=== PATIENT | male | born 1955 | race American Indian/Alaskan Native ===

== ENCOUNTER 2017-09-15 11:41 | Inpatient (IN) | payer OTHER ==
[2017-09-15] MEDS ORDERED: ASPIRIN PO ONE (12:42)
--- NOTE | 2017-09-15 12:45 | Emergency Department Report ---
Chief Complaint: Chest Pain Stated Complaint: CHILLS/FEVER Time Seen by Provider: 09/15/17 12:38 - HPI History of Present Illness: Patient is a 61-year-old [place] male who states that for the past week he has been having exertional diaphoresis. Patient states that when he is at work and he exerts himself only a slight amount he breaks out into a sweat and has some very mild shortness of breath. Within approximately 15 minutes his symptoms do resolve. Patient states that he has had one episode of congestive heart failure in the past patient states that his arteries of his heart were evaluated and he states that "they were good" patient is having no additional symptoms at this time. Patient denies cough fevers chills nausea vomiting. - ROS Review of Systems: ROS is negative except for those elements stated in HPI - Exam Vital Signs: Vital Signs 09/15/17 11:47 Temperature 98 F Pulse Rate 54 L Respiratory 16 Rate Blood Pressure 131/77 O2 Sat by Pulse 99 Oximetry Physical Exam: Physical exam within normal limits heart lung exam were normal abdomen was normal MSE screening note: Focused history and physical exam performed. Due to findings the following was ordered: ED Medical Decision Making - Medical Decision Making Patient may possibly be having anginal equivalent. Patient removed to the main ED for further management. ED Disposition for MSE Condition: Stable
--- NOTE | 2017-09-15 13:24 | XRay Report ---
Chest 2 views: History: Chest pain. Findings: Normal cardiomediastinal silhouette. Trachea is midline. No consolidation, pneumothorax or pleural effusion. Impression: No acute cardiopulmonary findings.
[2017-09-15 13:26] LABS: Hemoglobin 14.1 gm/dl (11.8-15.2); Mean Corpuscular HGB Conc 31 % (32-34); Mean Corpuscular Hemoglobin 24 pg (28-32); Mean Corpuscular Volume 75 fl (84-94); Platelet Count 210 K/mm3 (140-440); Red Blood Count 6.01 M/mm3 (3.65-5.03); Red Cell Distribution Width 14.2 % (13.2-15.2); White Blood Count 3.7 K/mm3 (4.5-11.0)
[2017-09-15 13:40] LABS: INR 0.99 (0.87-1.13)
[2017-09-15 13:41] LABS: Partial Thromboplastin Time 36.9 Sec. (24.2-36.6)
--- NOTE | 2017-09-15 13:43 | Emergency Department Report ---
ED Chest Pain HPI - General Chief Complaint: Chest Pain Stated Complaint: CHILLS/FEVER Time Seen by Provider: 09/15/17 12:38 Source: patient Mode of arrival: Ambulatory Limitations: No Limitations - History of Present Illness Initial Comments: Patient is 61 years old male history of high blood pressure and urinary monitor history of congestive heart failure per patient report. Patient presented to the ER with 1 week history of shortness of breath, tightness in his chest and significant diaphoresis after mild exertion. Patient denied any cough or peripheral edema. He denied any fever, nausea, vomiting. - Related Data Home Medications Medication Instructions Recorded Confirmed Last Taken Aspirin [Lo-Dose Aspirin EC] 81 mg PO DAILY 09/15/17 09/15/17 09/14/17 Lisinopril/Hydrochlorothiazide 1 tab PO QDAY 09/15/17 09/15/17 09/14/17 [Zestoretic 20-12.5 mg] amLODIPine [Norvasc] 10 mg PO DAILY 09/15/17 09/15/17 09/14/17 Allergies Allergy/AdvReac Type Severity Reaction Status Date / Time No Known Allergies Allergy Verified 09/15/17 11:47 Heart Score - HEART Score History: Moderately suspicious EKG: Non-specific Age: 45-65 Risk factors: > 3 risk factors or hx of atherosclerotic disease Troponin: < normal limit HEART Score: 5 - Critical Actions Critical Actions: 4-6 pts:12-16.6% risk of adverse cardiac event. Should be admitted ED Review of Systems ROS: Stated complaint: CHILLS/FEVER Other details as noted in HPI Comment: All other systems reviewed and negative Constitutional: denies: chills, fever Respiratory: shortness of breath. denies: cough, orthopnea Cardiovascular: chest pain Gastrointestinal: denies: abdominal pain, nausea, vomiting, diarrhea Neurological: denies: headache, weakness, numbness ED Past Medical Hx - Past Medical History Hx Hypertension: Yes - Social History Smoking Status: Never Smoker - Medications Home Medications: Home Medications Medication Instructions Recorded Confirmed Last Taken Type Aspirin [Lo-Dose Aspirin EC] 81 mg PO DAILY 09/15/17 09/15/17 09/14/17 History Lisinopril/Hydrochlorothiazide 1 tab PO QDAY 09/15/17 09/15/17 09/14/17 History [Zestoretic 20-12.5 mg] amLODIPine [Norvasc] 10 mg PO DAILY 09/15/17 09/15/17 09/14/17 History ED Physical Exam - General Limitations: No Limitations General appearance: alert, in no apparent distress - Head Head exam: Present: atraumatic, normocephalic, normal inspection - Eye Eye exam: Present: normal appearance, PERRL - ENT ENT exam: Present: normal exam, normal orophraynx, mucous membranes moist - Neck Neck exam: Present: normal inspection, full ROM. Absent: tenderness, meningismus - Respiratory Respiratory exam: Present: normal lung sounds bilaterally. Absent: respiratory distress, wheezes, rales, rhonchi, chest wall tenderness, accessory muscle use, decreased breath sounds, prolonged expiratory - Cardiovascular Cardiovascular Exam: Present: regular rate, normal rhythm, normal heart sounds - GI/Abdominal GI/Abdominal exam: Present: soft, normal bowel sounds. Absent: distended, tenderness, guarding, rebound, rigid, organomegaly, mass, bruit, pulsatile mass , hernia - Extremities Exam Extremities exam: Present: normal inspection, full ROM, normal capillary refill - Back Exam Back exam: Present: normal inspection. Absent: CVA tenderness (R), CVA tenderness (L) - Neurological Exam Neurological exam: Present: alert, oriented X3, CN II-XII intact, normal gait - Skin Skin exam: Present: warm, intact, normal color. Absent: cyanosis, diaphoretic ED Course Vital Signs 09/15/17 09/15/17 09/15/17 11:47 14:07 14:10 Temperature 98 F 98.6 F Pulse Rate 54 L 79 Respiratory 16 14 14 Rate Blood Pressure 131/77 Blood Pressure 129/79 [Left] O2 Sat by Pulse 99 100 100 Oximetry ED Medical Decision Making - Lab Data Result diagrams: 09/15/17 13:09 09/15/17 13:09 - EKG Data -: EKG Interpreted by Sc EKG shows normal: sinus rhythm - EKG Data Interpretation: no acute changes - Radiology Data Radiology results: report reviewed Chest x-ray showed no acute abnormalities - Medical Decision Making Discussed with Dr. TINEO, I presented the patient to him, he agreed to admit the patient and his service. Critical care attestation.: If time is entered above; I have spent that time in minutes in the direct care of this critically ill patient, excluding procedure time. ED Disposition Clinical Impression: Chest pain Disposition: DC-09 OP ADMIT IP TO THIS HOSP Is pt being admited?: Yes Condition: Stable Instructions: Chest Pain (ED) Referrals: ANTOINE HOWARD MD [Primary Care Provider] - 3-5 Days
[2017-09-15 14:02] LABS: Anisocytosis 1+; Basophils % (Manual) 0 % (0.0-1.8); Blastocytes % (Manual) 0 %; Elliptocytes Few; Eosinophils % (Manual) 0 % (0.0-4.3); Target Cells Few
[2017-09-15 14:03] LABS: Burr Cells Few; Diff Status Complete; Ovalocytes 1+; Stomatocytes Few
[2017-09-15 14:14] LABS: Urine Drugs of Abuse Note Disclamer
[2017-09-15 14:50] LABS: Alanine Aminotransferase 11 units/L (7-56); Albumin 4.2 g/dL (3.9-5); Alkaline Phosphatase 97 units/L (35-129); Anion Gap 20 mmol/L; BUN/Creatinine Ratio 18; Blood Urea Nitrogen 16 mg/dL (9-20); Carbon Dioxide 26 mmol/L (22-30); Chloride 94.1 mmol/L (98-107); Glucose 120 mg/dL (75-100); Potassium 3.5 mmol/L (3.6-5.0); Sodium 137 mmol/L (137-145); Total Protein 8.5 g/dL (6.3-8.2)
--- NOTE | 2017-09-15 22:48 | History and Physical Report ---
History of Present Illness Date of examination: 09/15/17 Date of admission: 09/15/17 14:57 Chief complaint: chief complaint: Chest pain since am History of present illness: history of present illness: 61-year-old -[place] male with history hypertension comes in for left-sided chest pain since a.m. Patient has been having shortness of breath and tightness in chest since 1 week but more so Chest pain is localized and intermittent in nature. No radiation. Dull in quality.pain is about 6 on a scale of 1-10. No palpitations, no diaphoresis. No syncope no seizures. No recent travel. Past History Past Medical History: GERD, hypertension Past Surgical History: No surgical history Social history: no significant social history, lives with family, full code. denies: smoking, alcohol abuse Family history: hypertension Medications and Allergies Allergies Allergy/AdvReac Type Severity Reaction Status Date / Time No Known Allergies Allergy Verified 09/15/17 11:47 Home Medications Medication Instructions Recorded Confirmed Last Taken Type Aspirin [Lo-Dose Aspirin EC] 81 mg PO DAILY 09/15/17 09/15/17 09/14/17 History Lisinopril/Hydrochlorothiazide 1 tab PO QDAY 09/15/17 09/15/17 09/14/17 History [Zestoretic 20-12.5 mg] amLODIPine [Norvasc] 10 mg PO DAILY 09/15/17 09/15/17 09/14/17 History Review of Systems All systems: negative Exam - Constitutional Vitals: Temp Pulse Resp BP Pulse Ox 98.7 F 109 H 18 112/67 98 09/15/17 21:06 09/15/17 21:06 09/15/17 21:06 09/15/17 21:06 09/15/17 21:47 General appearance: Present: no acute distress, well-nourished - EENT Eyes: Present: PERRL ENT: hearing intact, clear oral mucosa - Neck Neck: Present: supple, normal ROM - Respiratory Respiratory effort: normal Respiratory: bilateral: CTA - Cardiovascular Heart rate: 80 Rhythm: regular Heart Sounds: Present: S1 & S2. Absent: rub, click - Extremities Extremities: pulses symmetrical, No edema Peripheral Pulses: within normal limits - Abdominal General gastrointestinal: Present: soft, non-tender, non-distended, normal bowel sounds Male genitourinary: Present: normal - Integumentary Integumentary: Present: clear, warm, dry - Musculoskeletal Musculoskeletal: gait normal, strength equal bilaterally - Psychiatric Psychiatric: appropriate mood/affect, intact judgment & insight - Neurologic Neurologic: CNII-XII intact, moves all extremities Results - Labs CBC & Chem 7: 09/15/17 13:09 09/15/17 13:09 Labs: Laboratory Last Values WBC 3.7 K/mm3 (4.5-11.0) L 09/15/17 13:09 RBC 6.01 M/mm3 (3.65-5.03) H 09/15/17 13:09 Hgb 14.1 gm/dl (11.8-15.2) 09/15/17 13:09 Hct 45.0 % (35.5-45.6) 09/15/17 13:09 MCV 75 fl (84-94) L 09/15/17 13:09 MCH 24 pg (28-32) L 09/15/17 13:09 MCHC 31 % (32-34) L 09/15/17 13:09 RDW 14.2 % (13.2-15.2) 09/15/17 13:09 Plt Count 210 K/mm3 (140-440) 09/15/17 13:09 [place] % (Auto) Subcontract Manager 09/15/17 13:09 Add Manual Diff Complete 09/15/17 13:09 Total Counted 100 09/15/17 13:09 Seg Neutrophils % Subcontract Manager 09/15/17 13:09 Seg Neuts % (Manual) 27.0 % (40.0-70.0) L 09/15/17 13:09 Band Neutrophils % 0 % 09/15/17 13:09 Lymphocytes % (Manual) 58.0 % (13.4-35.0) H 09/15/17 13:09 Reactive Lymphs % (Man) 0 % 09/15/17 13:09 Monocytes % (Manual) 15.0 % (0.0-7.3) H 09/15/17 13:09 Eosinophils % (Manual) 0 % (0.0-4.3) 09/15/17 13:09 Basophils % (Manual) 0 % (0.0-1.8) 09/15/17 13:09 Metamyelocytes % 0 % 09/15/17 13:09 Myelocytes % 0 % 09/15/17 13:09 Promyelocytes % 0 % 09/15/17 13:09 Blast Cells % 0 % 09/15/17 13:09 Nucleated RBC % Not Reportable 09/15/17 13:09 Seg Neutrophils # Man 1.0 K/mm3 (1.8-7.7) L 09/15/17 13:09 Band Neutrophils # 0.0 K/mm3 09/15/17 13:09 Lymphocytes # (Manual) 2.1 K/mm3 (1.2-5.4) 09/15/17 13:09 Abs React Lymphs (Man) 0.0 K/mm3 09/15/17 13:09 Monocytes # (Manual) 0.6 K/mm3 (0.0-0.8) 09/15/17 13:09 Eosinophils # (Manual) 0.0 K/mm3 (0.0-0.4) 09/15/17 13:09 Basophils # (Manual) 0.0 K/mm3 (0.0-0.1) 09/15/17 13:09 Metamyelocytes # 0.0 K/mm3 09/15/17 13:09 Myelocytes # 0.0 K/mm3 09/15/17 13:09 Promyelocytes # 0.0 K/mm3 09/15/17 13:09 Blast Cells # 0.0 K/mm3 09/15/17 13:09 WBC Morphology Not Reportable 09/15/17 13:09 Hypersegmented Neuts Not Reportable 09/15/17 13:09 Hyposegmented Neuts Not Reportable 09/15/17 13:09 Hypogranular Neuts Not Reportable 09/15/17 13:09 Smudge Cells Not Reportable 09/15/17 13:09 Toxic Granulation Not Reportable 09/15/17 13:09 Toxic Vacuolation Not Reportable 09/15/17 13:09 Dohle Bodies Not Reportable 09/15/17 13:09 Pelger-Huet Anomaly Not Reportable 09/15/17 13:09 Ileana Rods Not Reportable 09/15/17 13:09 Platelet Estimate Appears normal 09/15/17 13:09 Clumped Platelets Not Reportable 09/15/17 13:09 Plt Clumps, EDTA Not Reportable 09/15/17 13:09 Large Platelets Not Reportable 09/15/17 13:09 Giant Platelets Not Reportable 09/15/17 13:09 Platelet Satelliting Not Reportable 09/15/17 13:09 Plt Morphology Comment Not Reportable 09/15/17 13:09 RBC Morphology Not Reportable 09/15/17 13:09 Dimorphic RBCs Not Reportable 09/15/17 13:09 Polychromasia Not Reportable 09/15/17 13:09 Hypochromasia Not Reportable 09/15/17 13:09 Poikilocytosis Not Reportable 09/15/17 13:09 Anisocytosis 1+ 09/15/17 13:09 Microcytosis Not Reportable 09/15/17 13:09 Macrocytosis Not Reportable 09/15/17 13:09 Spherocytes Not Reportable 09/15/17 13:09 Pappenheimer Bodies Not Reportable 09/15/17 13:09 Sickle Cells Not Reportable 09/15/17 13:09 Target Cells Few 09/15/17 13:09 Tear Drop Cells Not Reportable 09/15/17 13:09 Ovalocytes 1+ 09/15/17 13:09 Stomatocytes Few 09/15/17 13:09 Helmet Cells Not Reportable 09/15/17 13:09 [place] Bodies Not Reportable 09/15/17 13:09 [place] Rings Not Reportable 09/15/17 13:09 Alla Cells Few 09/15/17 13:09 Bite Cells Not Reportable 09/15/17 13:09 Crenated Cell Not Reportable 09/15/17 13:09 Elliptocytes Few 09/15/17 13:09 Acanthocytes (Spur) Not Reportable 09/15/17 13:09 Rouleaux Not Reportable 09/15/17 13:09 Hemoglobin C Crystals Not Reportable 09/15/17 13:09 Schistocytes Not Reportable 09/15/17 13:09 Malaria parasites Not Reportable 09/15/17 13:09 Piotr Bodies Not Reportable 09/15/17 13:09 Hem Pathologist Commnt No 09/15/17 13:09 PT 13.6 Sec. (12.2-14.9) 09/15/17 13:09 INR 0.99 (0.87-1.13) 09/15/17 13:09 APTT 36.9 Sec. (24.2-36.6) H 09/15/17 13:09 Sodium 137 mmol/L (137-145) 09/15/17 13:09 Potassium 3.5 mmol/L (3.6-5.0) L 09/15/17 13:09 Chloride 94.1 mmol/L (98-107) L 09/15/17 13:09 Carbon Dioxide 26 mmol/L (22-30) 09/15/17 13:09 Anion Gap 20 mmol/L 09/15/17 13:09 BUN 16 mg/dL (9-20) 09/15/17 13:09 Creatinine 0.9 mg/dL (0.8-1.5) 09/15/17 13:09 Estimated GFR > 60 ml/min 09/15/17 13:09 BUN/Creatinine Ratio 18 % 09/15/17 13:09 Glucose 120 mg/dL (75-100) H 09/15/17 13:09 Calcium 9.0 mg/dL (8.4-10.2) 09/15/17 13:09 Total Bilirubin 0.30 mg/dL (0.1-1.2) 09/15/17 13:09 AST 21 units/L (5-40) 09/15/17 13:09 ALT 11 units/L (7-56) 09/15/17 13:09 Alkaline Phosphatase 97 units/L (35-129) 09/15/17 13:09 Troponin T < 0.010 ng/mL (0.00-0.029) 09/15/17 13:09 NT-Pro-B Natriuret Pep 68.28 pg/mL (0-900) 09/15/17 13:00 Total Protein 8.5 g/dL (6.3-8.2) H 09/15/17 13:09 Albumin 4.2 g/dL (3.9-5) 09/15/17 13:09 Albumin/Globulin Ratio 1.0 % 09/15/17 13:09 Urine Opiates Screen Presumptive negative 09/15/17 14:05 Urine Methadone Screen Presumptive negative 09/15/17 14:05 Ur Barbiturates Screen Presumptive negative 09/15/17 14:05 Ur Phencyclidine Scrn Presumptive negative 09/15/17 14:05 Ur Amphetamines Screen Presumptive negative 09/15/17 14:05 U Benzodiazepines Scrn Presumptive negative 09/15/17 14:05 Urine Cocaine Screen Presumptive negative 09/15/17 14:05 U Marijuana (THC) Screen Presumptive positive 09/15/17 14:05 Drugs of Abuse Note Disclamer 09/15/17 14:05 Short CBC 09/15/17 Range/Units 13:09 WBC 3.7 L (4.5-11.0) K/mm3 Hgb 14.1 (11.8-15.2) gm/dl Hct 45.0 (35.5-45.6) % Plt Count 210 (140-440) K/mm3 BMP 09/15/17 13:09 Sodium 137 Potassium 3.5 L Chloride 94.1 L Carbon Dioxide 26 BUN 16 Creatinine 0.9 Glucose 120 H Calcium 9.0 Cardiac Enzymes 09/15/17 Range/Units 13:09 Troponin T < 0.010 (0.00-0.029) ng/mL Liver Function 09/15/17 Range/Units 13:09 Total Bilirubin 0.30 (0.1-1.2) mg/dL AST 21 (5-40) units/L ALT 11 (7-56) units/L Alkaline Phosphatase 97 (35-129) units/L Albumin 4.2 (3.9-5) g/dL - Imaging and Cardiology EKG: report reviewed (normal sinus rhythm 76/m) Chest x-ray: report reviewed (no acute findings) Assessment and Plan Advance Directives: Yes (full code) VTE prophylaxis?: Chemical Plan of care discussed with patient/family: Yes - Patient Problems (1) Chest pain Current Visit: Yes Status: Acute Qualifiers: Chest pain type: unspecified Qualified Code(s): R07.9 - Chest pain, unspecified Plan to address problem: chest pain workup. Serial cardiac enzymes and Lexiscan. Costochondritis not in the differential diagnosis. No chest wall tenderness.reflux esophagitis is a possibility (2) Hypertension Current Visit: Yes Status: Chronic Qualifiers: Hypertension type: essential hypertension Qualified Code(s): I10 - Essential (primary) hypertension Plan to address problem: continue Zestoretic and amlodipine (3) Hypokalemia Current Visit: Yes Status: Acute Plan to address problem: supplement (4) DVT prophylaxis Current Visit: Yes Status: Acute Plan to address problem: Lovenox 40 mg subcutaneous daily
[2017-09-15] MEDS ORDERED: K-DUR PO ONE (23:26)
[2017-09-16 00:20] LABS: Creatine Kinase 154 units/L (55-170)
[2017-09-16 06:38] LABS: Creatine Kinase MB 1.9 ng/mL (0.0-4.0)
[2017-09-16 06:42] LABS: Creatine Kinase 146 units/L (55-170)
[2017-09-16] MEDS ORDERED: LEXISCAN IV ONE ×2 (09:08→09:09)
[2017-09-16] MEDS ORDERED: NON-FORMULARY (Lisinopril/Hydrochlorothiazide [Zestoretic 20-12.5 Mg] 1 TAB) PO SCH (10:00)
[2017-09-16] MEDS ORDERED: K-DUR PO SCH (10:00)
[2017-09-16] MEDS ORDERED: NORVASC PO SCH ×2 (10:00→15:02)
[2017-09-16] MEDS ORDERED: HCTZ PO SCH (10:00)
--- NOTE | 2017-09-16 11:14 | Discharge Summary ---
Providers - Providers Date of Admission: 09/15/17 14:57 Attending physician: ZAIDA MICHAELS MD Primary care physician: ANTOINE HOWARD Hospitalization Condition: Stable Hospital course: 61-year-old -[place] male with history hypertension comes in for left- sided chest pain since a.m. Patient has been having shortness of breath and tightness in chest since 1 week but more so Chest pain is localized and intermittent in nature. No radiation. Dull in quality.pain is about 6 on a scale of 1-10. No palpitations, no diaphoresis. No syncope no seizures. No recent travel. Chest pain, likely Reflux encephalitis- HTN HYPOKALEMIA Disposition: DC-30 STILL A PATIENT Exam - Constitutional Vitals: Temp Pulse Resp BP Pulse Ox 99.1 F 60 18 128/71 98 09/16/17 09:07 09/16/17 09:07 09/16/17 09:07 09/16/17 09:07 09/16/17 09:07 Plan Activity: advance as tolerated, fall precautions Diet: low fat Special Instructions: record daily BP diary Follow up with: ANTOINE HOWARD MD [Primary Care Provider] - 3-5 Days Prescriptions: Pantoprazole [Protonix TAB] 40 mg PO QDAY #30 tablet
[2017-09-16] MEDS: KLOR-CON 8 PO SCH (11:16)
[2017-09-16] MEDS: HALFPRIN EC PO SCH (11:17)
[2017-09-16] MEDS: ZESTRIL PO SCH (11:17)
[2017-09-16] MEDS: PROTONIX PO SCH (11:18)
[2017-09-16 11:25] LABS: Creatine Kinase MB 1.7 ng/mL (0.0-4.0)
[2017-09-16 11:27] LABS: Creatine Kinase 142 units/L (55-170)
--- NOTE | 2017-09-16 13:48 | Discharge Summary ---
Providers - Providers Date of Admission: 09/15/17 14:57 Date of discharge: 09/16/17 Attending physician: ZAIDA MICHAELS MD 09/16/17 12:28 Consult to Cardiology [CONS] Routine Consulting Provider: HIRAL ARAUZ Reason For Exam: abnomal stress test Primary care physician: ANTOINE HOWARD Hospitalization Condition: Good Disposition: DC-30 STILL A PATIENT Exam - Constitutional Vitals: Temp Pulse Resp BP Pulse Ox 99.1 F 60 18 144/81 98 09/16/17 09:07 09/16/17 12:15 09/16/17 09:07 09/16/17 09:40 09/16/17 09:07 Plan Follow up with: ANTOINE HOWARD MD [Primary Care Provider] - 3-5 Days Prescriptions: Pantoprazole [Protonix TAB] 40 mg PO QDAY #30 tablet
--- NOTE | 2017-09-16 13:50 | Progress Note ---
<JOSHUAPILAR Linn - Last Filed: 09/16/17 13:59> Assessment and Plan Assessment and plan: Patient is a 61-year-old -[place]is[place] male with history hypertension comes in for left-sided chest pain and shortness of breath and tightness in chest since last week. Chest Pain We will admit to telemetry floor. EKG normal sinus, no ST elevation or T-wave inversion. Negative cardiac enzyme X3 Start on aspirin Nitroglycerin when necessary Morphine ordered for pain Abnormal stress test ; consult cardiology for possible cardiac catheterization Hypokalemia Replaced Repeat BMP Closely monitor electrolytes Hypertension Resume home antihypertensive medication IV hydralazine for SBP>160 Closely monitor blood pressure Marijuana abuse Patient strongly advised to quit smoking DVT prophylaxis Lovenox History Interval history: Patient denies having chest pain or shortness of breath. Hospitalist Physical - Constitutional Vitals: Temp Pulse Resp BP Pulse Ox 99.1 F 60 18 144/81 98 09/16/17 09:07 09/16/17 12:15 09/16/17 09:07 09/16/17 09:40 09/16/17 09:07 General appearance: Present: no acute distress, well-nourished - EENT Eyes: Present: PERRL ENT: hearing intact - Neck Neck: Present: supple - Respiratory Respiratory effort: normal Respiratory: bilateral: CTA - Cardiovascular Rhythm: regular Heart Sounds: Present: S1 & S2 - Abdominal General gastrointestinal: soft, non-tender - Integumentary Integumentary: Present: clear, warm, dry - Psychiatric Psychiatric: appropriate mood/affect - Neurologic Neurologic: moves all extremities - Allied Health Allied health notes reviewed: nursing Results - Labs CBC & Chem 7: 09/15/17 13:09 09/15/17 13:09 Labs: Laboratory Last Values WBC 3.7 K/mm3 (4.5-11.0) L 09/15/17 13:09 RBC 6.01 M/mm3 (3.65-5.03) H 09/15/17 13:09 Hgb 14.1 gm/dl (11.8-15.2) 09/15/17 13:09 Hct 45.0 % (35.5-45.6) 09/15/17 13:09 MCV 75 fl (84-94) L 09/15/17 13:09 MCH 24 pg (28-32) L 09/15/17 13:09 MCHC 31 % (32-34) L 09/15/17 13:09 RDW 14.2 % (13.2-15.2) 09/15/17 13:09 Plt Count 210 K/mm3 (140-440) 09/15/17 13:09 Perkins % (Auto) [employer] 09/15/17 13:09 Add Manual Diff Complete 09/15/17 13:09 Total Counted 100 09/15/17 13:09 Seg Neutrophils % [employer] 09/15/17 13:09 Seg Neuts % (Manual) 27.0 % (40.0-70.0) L 09/15/17 13:09 Band Neutrophils % 0 % 09/15/17 13:09 Lymphocytes % (Manual) 58.0 % (13.4-35.0) H 09/15/17 13:09 Reactive Lymphs % (Man) 0 % 09/15/17 13:09 Monocytes % (Manual) 15.0 % (0.0-7.3) H 09/15/17 13:09 Eosinophils % (Manual) 0 % (0.0-4.3) 09/15/17 13:09 Basophils % (Manual) 0 % (0.0-1.8) 09/15/17 13:09 Metamyelocytes % 0 % 09/15/17 13:09 Myelocytes % 0 % 09/15/17 13:09 Promyelocytes % 0 % 09/15/17 13:09 Blast Cells % 0 % 09/15/17 13:09 Nucleated RBC % Not Reportable 09/15/17 13:09 Seg Neutrophils # Man 1.0 K/mm3 (1.8-7.7) L 09/15/17 13:09 Band Neutrophils # 0.0 K/mm3 09/15/17 13:09 Lymphocytes # (Manual) 2.1 K/mm3 (1.2-5.4) 09/15/17 13:09 Abs React Lymphs (Man) 0.0 K/mm3 09/15/17 13:09 Monocytes # (Manual) 0.6 K/mm3 (0.0-0.8) 09/15/17 13:09 Eosinophils # (Manual) 0.0 K/mm3 (0.0-0.4) 09/15/17 13:09 Basophils # (Manual) 0.0 K/mm3 (0.0-0.1) 09/15/17 13:09 Metamyelocytes # 0.0 K/mm3 09/15/17 13:09 Myelocytes # 0.0 K/mm3 09/15/17 13:09 Promyelocytes # 0.0 K/mm3 09/15/17 13:09 Blast Cells # 0.0 K/mm3 09/15/17 13:09 WBC Morphology Not Reportable 09/15/17 13:09 Hypersegmented Neuts Not Reportable 09/15/17 13:09 Hyposegmented Neuts Not Reportable 09/15/17 13:09 Hypogranular Neuts Not Reportable 09/15/17 13:09 Smudge Cells Not Reportable 09/15/17 13:09 Toxic Granulation Not Reportable 09/15/17 13:09 Toxic Vacuolation Not Reportable 09/15/17 13:09 Dohle Bodies Not Reportable 09/15/17 13:09 Pelger-Huet Anomaly Not Reportable 09/15/17 13:09 Ileana Rods Not Reportable 09/15/17 13:09 Platelet Estimate Appears normal 09/15/17 13:09 Clumped Platelets Not Reportable 09/15/17 13:09 Plt Clumps, EDTA Not Reportable 09/15/17 13:09 Large Platelets Not Reportable 09/15/17 13:09 Giant Platelets Not Reportable 09/15/17 13:09 Platelet Satelliting Not Reportable 09/15/17 13:09 Plt Morphology Comment Not Reportable 09/15/17 13:09 RBC Morphology Not Reportable 09/15/17 13:09 Dimorphic RBCs Not Reportable 09/15/17 13:09 Polychromasia Not Reportable 09/15/17 13:09 Hypochromasia Not Reportable 09/15/17 13:09 Poikilocytosis Not Reportable 09/15/17 13:09 Anisocytosis 1+ 09/15/17 13:09 Microcytosis Not Reportable 09/15/17 13:09 Macrocytosis Not Reportable 09/15/17 13:09 Spherocytes Not Reportable 09/15/17 13:09 Pappenheimer Bodies Not Reportable 09/15/17 13:09 Sickle Cells Not Reportable 09/15/17 13:09 Target Cells Few 09/15/17 13:09 Tear Drop Cells Not Reportable 09/15/17 13:09 Ovalocytes 1+ 09/15/17 13:09 Stomatocytes Few 09/15/17 13:09 Helmet Cells Not Reportable 09/15/17 13:09 [place] Bodies Not Reportable 09/15/17 13:09 Boyle Rings Not Reportable 09/15/17 13:09 Alla Cells Few 09/15/17 13:09 Bite Cells Not Reportable 09/15/17 13:09 Crenated Cell Not Reportable 09/15/17 13:09 Elliptocytes Few 09/15/17 13:09 Acanthocytes (Spur) Not Reportable 09/15/17 13:09 Rouleaux Not Reportable 09/15/17 13:09 Hemoglobin C Crystals Not Reportable 09/15/17 13:09 Schistocytes Not Reportable 09/15/17 13:09 Malaria parasites Not Reportable 09/15/17 13:09 Piotr Bodies Not Reportable 09/15/17 13:09 Hem Pathologist Commnt No 09/15/17 13:09 PT 13.6 Sec. (12.2-14.9) 09/15/17 13:09 INR 0.99 (0.87-1.13) 09/15/17 13:09 APTT 36.9 Sec. (24.2-36.6) H 09/15/17 13:09 Sodium 137 mmol/L (137-145) 09/15/17 13:09 Potassium 3.5 mmol/L (3.6-5.0) L 09/15/17 13:09 Chloride 94.1 mmol/L (98-107) L 09/15/17 13:09 Carbon Dioxide 26 mmol/L (22-30) 09/15/17 13:09 Anion Gap 20 mmol/L 09/15/17 13:09 BUN 16 mg/dL (9-20) 09/15/17 13:09 Creatinine 0.9 mg/dL (0.8-1.5) 09/15/17 13:09 Estimated GFR > 60 ml/min 09/15/17 13:09 BUN/Creatinine Ratio 18 % 09/15/17 13:09 Glucose 120 mg/dL (75-100) H 09/15/17 13:09 Calcium 9.0 mg/dL (8.4-10.2) 09/15/17 13:09 Total Bilirubin 0.30 mg/dL (0.1-1.2) 09/15/17 13:09 AST 21 units/L (5-40) 09/15/17 13:09 ALT 11 units/L (7-56) 09/15/17 13:09 Alkaline Phosphatase 97 units/L (35-129) 09/15/17 13:09 Total Creatine Kinase 142 units/L (55-170) 09/16/17 10:48 CK-MB (CK-2) 1.7 ng/mL (0.0-4.0) 09/16/17 10:48 CK-MB (CK-2) Rel Index 1.1 (0-4) 09/16/17 10:48 Troponin T < 0.010 ng/mL (0.00-0.029) 09/16/17 10:48 NT-Pro-B Natriuret Pep 68.28 pg/mL (0-900) 09/15/17 13:00 Total Protein 8.5 g/dL (6.3-8.2) H 09/15/17 13:09 Albumin 4.2 g/dL (3.9-5) 09/15/17 13:09 Albumin/Globulin Ratio 1.0 % 09/15/17 13:09 Urine Opiates Screen Presumptive negative 09/15/17 14:05 Urine Methadone Screen Presumptive negative 09/15/17 14:05 Ur Barbiturates Screen Presumptive negative 09/15/17 14:05 Ur Phencyclidine Scrn Presumptive negative 09/15/17 14:05 Ur Amphetamines Screen Presumptive negative 09/15/17 14:05 U Benzodiazepines Scrn Presumptive negative 09/15/17 14:05 Urine Cocaine Screen Presumptive negative 09/15/17 14:05 U Marijuana (THC) Screen Presumptive positive 09/15/17 14:05 Drugs of Abuse Note Disclamer 09/15/17 14:05 <ZAIDA MICHAELS - Last Filed: 09/16/17 15:50> Assessment and Plan Assessment and plan: I saw and evaluated the patient. I agree with the findings and the plan of care as documented in the Nurse Practitioner's~note, with the following corrections and additions. Patient reports that while at work he became very diaphoretic, he actually denies having any chest pain but reports shortness of breath. He denies prior episode but has been under significant stress, recently lost his sister 3 weeks ago and also has occasional panic events and as a result while at work does not like people standing behind him. Will await findings from cardiac eval in am. npo after midnight. Hospitalist Physical - Constitutional Vitals: Temp Pulse Resp BP Pulse Ox 99.1 F 60 18 144/81 98 09/16/17 09:07 09/16/17 12:15 09/16/17 09:07 09/16/17 09:40 09/16/17 09:07 General appearance: Present: no acute distress, well-nourished - EENT Eyes: Present: PERRL, EOM intact ENT: hearing intact, clear oral mucosa, dentition normal - Neck Neck: Present: supple, normal ROM - Respiratory Respiratory effort: normal Respiratory: bilateral: CTA - Cardiovascular Rhythm: regular Heart Sounds: Present: S1 & S2 - Extremities Extremities: no ischemia, pulses intact, pulses symmetrical, No edema, normal temperature, normal color Peripheral Pulses: within normal limits - Abdominal General gastrointestinal: soft, non-tender, non-distended, normal bowel sounds - Integumentary Integumentary: Present: clear, warm, dry - Psychiatric Psychiatric: appropriate mood/affect, intact judgment & insight, cooperative - Neurologic Neurologic: CNII-XII intact, moves all extremities - Allied Health Allied health notes reviewed: nursing Results - Labs CBC & Chem 7: 09/15/17 13:09 09/15/17 13:09 Labs: Laboratory Last Values WBC 3.7 K/mm3 (4.5-11.0) L 09/15/17 13:09 RBC 6.01 M/mm3 (3.65-5.03) H 09/15/17 13:09 Hgb 14.1 gm/dl (11.8-15.2) 09/15/17 13:09 Hct 45.0 % (35.5-45.6) 09/15/17 13:09 MCV 75 fl (84-94) L 09/15/17 13:09 MCH 24 pg (28-32) L 09/15/17 13:09 MCHC 31 % (32-34) L 09/15/17 13:09 RDW 14.2 % (13.2-15.2) 09/15/17 13:09 Plt Count 210 K/mm3 (140-440) 09/15/17 13:09 Perkins % (Auto) [employer] 09/15/17 13:09 Add Manual Diff Complete 09/15/17 13:09 Total Counted 100 09/15/17 13:09 Seg Neutrophils % [employer] 09/15/17 13:09 Seg Neuts % (Manual) 27.0 % (40.0-70.0) L 09/15/17 13:09 Band Neutrophils % 0 % 09/15/17 13:09 Lymphocytes % (Manual) 58.0 % (13.4-35.0) H 09/15/17 13:09 Reactive Lymphs % (Man) 0 % 09/15/17 13:09 Monocytes % (Manual) 15.0 % (0.0-7.3) H 09/15/17 13:09 Eosinophils % (Manual) 0 % (0.0-4.3) 09/15/17 13:09 Basophils % (Manual) 0 % (0.0-1.8) 09/15/17 13:09 Metamyelocytes % 0 % 09/15/17 13:09 Myelocytes % 0 % 09/15/17 13:09 Promyelocytes % 0 % 09/15/17 13:09 Blast Cells % 0 % 09/15/17 13:09 Nucleated RBC % Not Reportable 09/15/17 13:09 Seg Neutrophils # Man 1.0 K/mm3 (1.8-7.7) L 09/15/17 13:09 Band Neutrophils # 0.0 K/mm3 09/15/17 13:09 Lymphocytes # (Manual) 2.1 K/mm3 (1.2-5.4) 09/15/17 13:09 Abs React Lymphs (Man) 0.0 K/mm3 09/15/17 13:09 Monocytes # (Manual) 0.6 K/mm3 (0.0-0.8) 09/15/17 13:09 Eosinophils # (Manual) 0.0 K/mm3 (0.0-0.4) 09/15/17 13:09 Basophils # (Manual) 0.0 K/mm3 (0.0-0.1) 09/15/17 13:09 Metamyelocytes # 0.0 K/mm3 09/15/17 13:09 Myelocytes # 0.0 K/mm3 09/15/17 13:09 Promyelocytes # 0.0 K/mm3 09/15/17 13:09 Blast Cells # 0.0 K/mm3 09/15/17 13:09 WBC Morphology Not Reportable 09/15/17 13:09 Hypersegmented Neuts Not Reportable 09/15/17 13:09 Hyposegmented Neuts Not Reportable 09/15/17 13:09 Hypogranular Neuts Not Reportable 09/15/17 13:09 Smudge Cells Not Reportable 09/15/17 13:09 Toxic Granulation Not Reportable 09/15/17 13:09 Toxic Vacuolation Not Reportable 09/15/17 13:09 Dohle Bodies Not Reportable 09/15/17 13:09 Pelger-Huet Anomaly Not Reportable 09/15/17 13:09 Ileana Rods Not Reportable 09/15/17 13:09 Platelet Estimate Appears normal 09/15/17 13:09 Clumped Platelets Not Reportable 09/15/17 13:09 Plt Clumps, EDTA Not Reportable 09/15/17 13:09 Large Platelets Not Reportable 09/15/17 13:09 Giant Platelets Not Reportable 09/15/17 13:09 Platelet Satelliting Not Reportable 09/15/17 13:09 Plt Morphology Comment Not Reportable 09/15/17 13:09 RBC Morphology Not Reportable 09/15/17 13:09 Dimorphic RBCs Not Reportable 09/15/17 13:09 Polychromasia Not Reportable 09/15/17 13:09 Hypochromasia Not Reportable 09/15/17 13:09 Poikilocytosis Not Reportable 09/15/17 13:09 Anisocytosis 1+ 09/15/17 13:09 Microcytosis Not Reportable 09/15/17 13:09 Macrocytosis Not Reportable 09/15/17 13:09 Spherocytes Not Reportable 09/15/17 13:09 Pappenheimer Bodies Not Reportable 09/15/17 13:09 Sickle Cells Not Reportable 09/15/17 13:09 Target Cells Few 09/15/17 13:09 Tear Drop Cells Not Reportable 09/15/17 13:09 Ovalocytes 1+ 09/15/17 13:09 Stomatocytes Few 09/15/17 13:09 Helmet Cells Not Reportable 09/15/17 13:09 [place] Bodies Not Reportable 09/15/17 13:09 Boyle Rings Not Reportable 09/15/17 13:09 [place] Cells Few 09/15/17 13:09 Bite Cells Not Reportable 09/15/17 13:09 Crenated Cell Not Reportable 09/15/17 13:09 Elliptocytes Few 09/15/17 13:09 Acanthocytes (Spur) Not Reportable 09/15/17 13:09 Rouleaux Not Reportable 09/15/17 13:09 Hemoglobin C Crystals Not Reportable 09/15/17 13:09 Schistocytes Not Reportable 09/15/17 13:09 Malaria parasites Not Reportable 09/15/17 13:09 Piotr Bodies Not Reportable 09/15/17 13:09 Hem Pathologist Commnt No 09/15/17 13:09 PT 13.6 Sec. (12.2-14.9) 09/15/17 13:09 INR 0.99 (0.87-1.13) 09/15/17 13:09 APTT 36.9 Sec. (24.2-36.6) H 09/15/17 13:09 Sodium 137 mmol/L (137-145) 09/15/17 13:09 Potassium 3.5 mmol/L (3.6-5.0) L 09/15/17 13:09 Chloride 94.1 mmol/L (98-107) L 09/15/17 13:09 Carbon Dioxide 26 mmol/L (22-30) 09/15/17 13:09 Anion Gap 20 mmol/L 09/15/17 13:09 BUN 16 mg/dL (9-20) 09/15/17 13:09 Creatinine 0.9 mg/dL (0.8-1.5) 09/15/17 13:09 Estimated GFR > 60 ml/min 09/15/17 13:09 BUN/Creatinine Ratio 18 % 09/15/17 13:09 Glucose 120 mg/dL (75-100) H 09/15/17 13:09 Calcium 9.0 mg/dL (8.4-10.2) 09/15/17 13:09 Total Bilirubin 0.30 mg/dL (0.1-1.2) 09/15/17 13:09 AST 21 units/L (5-40) 09/15/17 13:09 ALT 11 units/L (7-56) 09/15/17 13:09 Alkaline Phosphatase 97 units/L (35-129) 09/15/17 13:09 Total Creatine Kinase 142 units/L (55-170) 09/16/17 10:48 CK-MB (CK-2) 1.7 ng/mL (0.0-4.0) 09/16/17 10:48 CK-MB (CK-2) Rel Index 1.1 (0-4) 09/16/17 10:48 Troponin T < 0.010 ng/mL (0.00-0.029) 09/16/17 10:48 NT-Pro-B Natriuret Pep 68.28 pg/mL (0-900) 09/15/17 13:00 Total Protein 8.5 g/dL (6.3-8.2) H 09/15/17 13:09 Albumin 4.2 g/dL (3.9-5) 09/15/17 13:09 Albumin/Globulin Ratio 1.0 % 09/15/17 13:09 Urine Opiates Screen Presumptive negative 09/15/17 14:05 Urine Methadone Screen Presumptive negative 09/15/17 14:05 Ur Barbiturates Screen Presumptive negative 09/15/17 14:05 Ur Phencyclidine Scrn Presumptive negative 09/15/17 14:05 Ur Amphetamines Screen Presumptive negative 09/15/17 14:05 U Benzodiazepines Scrn Presumptive negative 09/15/17 14:05 Urine Cocaine Screen Presumptive negative 09/15/17 14:05 U Marijuana (THC) Screen Presumptive positive 09/15/17 14:05 Drugs of Abuse Note Disclamer 09/15/17 14:05
[2017-09-16] MEDS ORDERED: NITROSTAT SL PRN (14:09)
--- NOTE | 2017-09-16 14:16 | Consultation ---
History of Present Illness Consult date: 09/16/17 Requesting physician: ZAIDA MICHAELS Consult reason: other (abnormal stress test) History of present illness: The pt is a 61 YO male with a past medical history significant for HTN, "heart failure",GERD, tobacco use and marijuana use. He is previously unknown to our practice. He presented with c/o diaphoresis while at his job. He also c/o some SOB and MARLOW. He denies any chest pain on evaluation, however, pt reportedly did c/o chest pain at admission per the chart. Pt underwent lexiscan MPI stress test this AM which showed partially reversible moderate sized possibly reversible inferior perfusion defect, small mild fixed apical perfusion defect, TID, EF 37% and thus cardiology has been consulted. Pt reports a history of "heart failure" 5 years ago. He reports that he was told that he had a "weak heart" at that time and underwent LHC [place] [facility] which did not show any significant CAD per pt report. Past History Past Medical History: GERD, hypertension Past Surgical History: No surgical history Social history: no significant social history, lives with family, full code. denies: smoking, alcohol abuse Family history: hypertension Medications and Allergies Allergies Allergy/AdvReac Type Severity Reaction Status Date / Time No Known Allergies Allergy Verified 09/15/17 11:47 Home Medications Medication Instructions Recorded Confirmed Last Taken Type Aspirin [Lo-Dose Aspirin EC] 81 mg PO DAILY 09/15/17 09/15/17 09/14/17 History Lisinopril/Hydrochlorothiazide 1 tab PO QDAY 09/15/17 09/15/17 09/14/17 History [Zestoretic 20-12.5 mg] amLODIPine [Norvasc] 10 mg PO DAILY 09/15/17 09/15/17 09/14/17 History Pantoprazole [Protonix TAB] 40 mg PO QDAY #30 tablet 09/16/17 Unknown Rx Active Meds: Active Medications Amlodipine Besylate (Norvasc) 10 mg PO DAILY [facility] Last Admin: 09/16/17 11:17 Dose: 10 mg Aspirin (Halfprin Ec) 81 mg PO DAILY [facility] Last Admin: 09/16/17 11:17 Dose: 81 mg Enoxaparin Sodium (Lovenox) 40 mg SUB-Q QDAY@2200 [facility] Hydrochlorothiazide (Hctz) 12.5 mg PO QDAY [facility] Last Admin: 12/14/17 11:18 Dose: 12.5 mg Lisinopril (Zestril) 20 mg PO QDAY [facility] Last Admin: 09/16/17 11:17 Dose: 20 mg Nitroglycerin (Nitrostat) 0.4 mg SL .Q5MIN PRN PRN Reason: Chest Pain Pantoprazole Sodium (Protonix) 40 mg PO QDAY [facility] Last Admin: 09/16/17 11:18 Dose: 40 mg Potassium Chloride (Klor-Con 8) 8 meq PO QDAY [facility] Last Admin: 09/16/17 11:16 Dose: 8 meq Review of Systems Constitutional: sweats, no weight loss, no weight gain, no fever, no chills Ears, nose, mouth and throat: no ear pain, no nose pain, no sinus pressure, no sinus pain Cardiovascular: shortness of breath, dyspnea on exertion, high blood pressure, no chest pain, no orthopnea, no palpitations, no rapid/irregular heart beat, no edema, no syncope, no lightheadedness Respiratory: shortness of breath, dyspnea on exertion, no cough, no congestion, no wheezing, no pain on inspiration Gastrointestinal: no abdominal pain, no nausea, no vomiting, no diarrhea, no constipation, no change in bowel habits Genitourinary Male: no dysuria, no hematuria, no flank pain, no discharge, no urinary frequency, no urinary hesitancy Musculoskeletal: no neck stiffness, no neck pain, no shooting arm pain, no arm numbness/tingling, no low back pain, no shooting leg pain, no leg numbness/ tingling, no redness of joints Integumentary: no rash, no pruritis, no redness, no sores, no wounds Neurological: no head injury, no paralysis, no weakness, no parathesias, no numbness, no tingling, no seizures, no syncope Psychiatric: no anxiety Endocrine: no cold intolerance, no heat intolerance Hematologic/Lymphatic: no easy bruising, no easy bleeding, no lymphadenopathy Allergic/Immunologic: no urticaria, no wheezing, no persistent infections Physical Examination Last Vital Signs Temp 99.1 F 09/16/17 09:07 Pulse 60 09/16/17 12:15 Resp 18 09/16/17 09:07 BP 144/81 09/16/17 09:40 Pulse Ox 98 09/16/17 09:07 General appearance: no acute distress HEENT: Positive: PERRL, Normocephaly, Mucus Membranes Moist Neck: Positive: neck supple, trachea midline Cardiac: Positive: Reg Rate and Rhythm, S1/S2 Lungs: Positive: clear to auscultation Neuro: Positive: Grossly Intact, Cranial Nerve 2-12 Intact Abdomen: Positive: Unremarkable, Soft, Active Bowel Sounds. Negative: Tender Skin: Positive: Clear. Negative: Rash, Wound Musculoskeletal: No Fluid Collection, No Pain, Normal Range of Motion Extremities: Absent: edema Results 09/15/17 13:09 09/15/17 13:09 Cardiac Enzymes 09/15/17 09/15/17 09/16/17 Range/Units 13:09 23:31 04:35 AST 21 (5-40) units/L CK-MB (CK-2) 2.0 1.9 (0.0-4.0) ng/mL 09/16/17 Range/Units 10:48 AST (5-40) units/L CK-MB (CK-2) 1.7 (0.0-4.0) ng/mL Comprehensive Metabolic Panel 09/15/17 Range/Units 13:09 Sodium 137 (137-145) mmol/L Potassium 3.5 L (3.6-5.0) mmol/L Chloride 94.1 L (98-107) mmol/L Carbon Dioxide 26 (22-30) mmol/L BUN 16 (9-20) mg/dL Creatinine 0.9 (0.8-1.5) mg/dL Glucose 120 H (75-100) mg/dL Calcium 9.0 (8.4-10.2) mg/dL AST 21 (5-40) units/L ALT 11 (7-56) units/L Alkaline Phosphatase 97 (35-129) units/L Total Protein 8.5 H (6.3-8.2) g/dL Albumin 4.2 (3.9-5) g/dL - Imaging and Cardiology Echo: pending EKG: report reviewed, image reviewed EKG interpretations - Telemetry EKG Rhythm: Sinus Rhythm - EKG Sinus rhythms and dysrhythmias: sinus rhythm Myocardial infarction: anterior KS (old age or i Assessment and Plan Assessment: Abnormal stress test - lexiscan MPI this AM showed partially reversible moderate sized possibly reversible inferior perfusion defect, small mild fixed apical perfusion defect, TID, EF 37%. SOB / MARLOW CMP HTN GERD Tobacco use / marijuana use - cessation encouraged Plan: Obtain echo. Initiate coreg. Decrease amlodipine to 5mg daily and d/c HCTZ to allow for addition of BB. Cont lisinopril. Request medical records from [facility]. May not pursue coronary angiography pending findings on [facility] records. Assessment and plan reviewed with pt at bedside. The patient has been seen in conjunction with Dr. Adam who agrees with the assessment and plan of care.
[2017-09-16] MEDS ORDERED: ALUM-MAG HYDROX-SIMETH 200-200-20MG/5ML PO PRN (15:02)
[2017-09-16 17:38] LABS: Anion Gap 15 mmol/L; BUN/Creatinine Ratio 14; Blood Urea Nitrogen 13 mg/dL (9-20); Carbon Dioxide 28 mmol/L (22-30); Glucose 117 mg/dL (75-100); Potassium 3.6 mmol/L (3.6-5.0); Sodium 134 mmol/L (137-145)
[2017-09-16] MEDS: COREG PO SCH (21:41)
[2017-09-16] MEDS ORDERED: LOVENOX SUB-Q SCH (22:00)
--- NOTE | 2017-09-17 01:14 | Treadmill Report ---
SINGLE ISOTOPE DUAL STUDY MYOCARDIAL PERFUSION SCAN REFERRING PHYSICIAN: Dr. Gerard Damico. DESCRIPTION OF PROCEDURE: The patient received 10 mCi of technetium 99m Myoview intravenously under resting condition. Resting myocardial perfusion scan was done. Subsequently, the patient underwent Lexiscan stress test as per the protocol. During Lexiscan stress test, the patient received 28 mCi of technetium 99m Myoview intravenously. After 30-60 minutes, post stress images were done. Computerized reconstruction images were performed for analysis. The post-stress images revealed transient ischemic dilatation of the left ventricle. Moderate sized mild inferior wall perfusion defect was seen. A small mild apical perfusion defect was also seen. Gated study revealed moderate global left ventricular systolic dysfunction with EF around 37%. There is no reperfusion of the apical perfusion defect. However, the inferior wall perfusion defect revealed partial reversibility. CONCLUSION: 1. Transient ischemic dilatation of the left ventricle in the stress images. 2. Moderate sized mild partially reversible inferior wall perfusion defect. 3. Small mild fixed apical perfusion defect. 4. Moderate global left ventricular systolic dysfunction with LVEF around 37%. JOB# [id number] [facility]
[2017-09-17] MEDS ORDERED: NORVASC PO SCH (10:00)
--- NOTE | 2017-09-17 10:02 | Progress Note ---
Assessment and Plan Assessment: Abnormal stress test - lexiscan MPI this AM showed partially reversible moderate sized possibly reversible inferior perfusion defect, small mild fixed apical perfusion defect, TID, EF 37%. Diaphoresis SOB / MARLOW CMP - likely nonischemic; no current clinical evidence of heart failure; pt reports LHC [address] [facility] [place] for CMP evaluation which was normal to his knowledge. HTN GERD Tobacco use / marijuana use - cessation encouraged Plan: Echo reviewed - EF 30-35%, RV systolic function mildly reduced, RA mildly dilated, mod thickening of right coronary cusp, mild AR, trace TR. Cont coreg and lisinopril. Currently stable cardiac status. Pt may discharge home from cardiology standpoint. Recommend pt to follow up in our office with Angela Rojas NP, within 1-2 weeks of hospital discharge ([phone]). Assessment and plan reviewed with pt at bedside. The patient has been seen in conjunction with Dr. Adam who agrees with the assessment and plan of care. Subjective Date of service: 09/17/17 Principal diagnosis: diaphoresis; CMP Interval history: pt resting comfortably in bed, denies chest pain. c/o bout of diaphoresis this AM after drinking hot coffee. Objective Last Vital Signs Temp 98.1 F 09/17/17 03:53 Pulse 58 L 09/17/17 00:09 Resp 18 09/17/17 03:53 BP 132/75 09/17/17 03:53 Pulse Ox 100 09/16/17 23:45 - Physical Examination General: No Apparent Distress HEENT: Positive: PERRL, Normocephaly, Mucus Membranes Moist Neck: Positive: neck supple, trachea midline Cardiac: Positive: Reg Rate and Rhythm, S1/S2 Lungs: Positive: clear to auscultation Neuro: Positive: Grossly Intact, Cranial Nerve 2-12 Intact Abdomen: Positive: Unremarkable, Soft, Active Bowel Sounds. Negative: Tender Skin: Positive: Clear. Negative: Rash, Wound Musculoskeletal: No Fluid Collection, No Pain, Normal Range of Motion Extremities: Absent: edema - Labs and Meds Cardiac Enzymes 09/16/17 Range/Units 10:48 CK-MB (CK-2) 1.7 (0.0-4.0) ng/mL Comprehensive Metabolic Panel 09/16/17 Range/Units 17:00 Sodium 134 L (137-145) mmol/L Potassium 3.6 (3.6-5.0) mmol/L Chloride 95.0 L (98-107) mmol/L Carbon Dioxide 28 (22-30) mmol/L BUN 13 (9-20) mg/dL Creatinine 0.9 (0.8-1.5) mg/dL Glucose 117 H (75-100) mg/dL Calcium 9.0 (8.4-10.2) mg/dL - Imaging and Cardiology EKG: report reviewed, image reviewed Echo: pending - EKG Sinus rhythms and dysrhythmias: sinus rhythm Myocardial infarction: anterior IA (old age or i
--- NOTE | 2017-09-17 10:32 | Event Note ---
Date: 09/17/17 Discussed with cardiology, patient with prior episode of cardiac cath, with known CAD. Advised follow up with cardiology, GI for possible endoscopy to rule out Esophagitis, also with Psychiatry.
[2017-09-17] MEDS: HALFPRIN EC PO SCH (10:40)
[2017-09-17] MEDS: ZESTRIL PO SCH (10:41)
[2017-09-17] MEDS: KLOR-CON 8 PO SCH (10:41)
[2017-09-17] MEDS: PROTONIX PO SCH (10:41)
[2017-09-17] MEDS: COREG PO SCH (10:42)
[2017-09-17 10:43] VITALS: BP 129/69
--- NOTE | 2017-09-17 14:35 | Discharge Summary ---
<PILAR GRAHAM - Last Filed: 09/17/17 15:02> Providers - Providers Date of Admission: 09/15/17 14:57 Date of discharge: 09/17/17 Attending physician: ZAIDA MICHAELS MD 09/16/17 12:28 Consult to Cardiology [CONS] Routine Consulting Provider: HIRAL ARAUZ Reason For Exam: abnomal stress test Primary care physician: ANTOINE HWOARD Hospitalization Condition: Stable Hospital course: Patient is a 61-year-old -[place] male with history hypertension who presents to the emergency department for left-sided chest pain since a.m. Patient was diagnosed with Chest Pain, Hypokalemia,Hypertension and Marijuana abuse. Patient presented with atypical chest pain, ACS was ruled out, Abnormal stress test - lexiscan MPI this AM showed partially reversible moderate sized possibly reversible inferior perfusion defect, small mild fixed apical perfusion defect, TID, EF 37%. Echocardiogram reveled - EF 30-35%, RV systolic function mildly reduced, RA mildly dilated, mod thickening of right coronary cusp, mild AR, trace TR. Cardiology recommended to continue on current medication. Negative cardiac enzymes, ECGs shows normal sinus rythm, CXR WNL. Patient chest pain probably from from gastritis. He was treated with IV fluid hydration and antihypertensive medications. He has been discharge with antacid. Patient referred to follow up with GI for possible Endoscopy as outpatient. Also advised to follow up with psychiatric for anxiety. Patient is clinically improved and no chest pain at present time. Patient advised to follow-up with her primary care provider. Discharge Diagnosed Chest Pain Hypokalemia Hypertension Marijuana abuse Disposition: - TO HOME OR SELFCARE Time spent for discharge: 35 minutes Core Measure Documentation - Palliative Care Palliative Care/ Comfort Measures: Not Applicable - Core Measures Any of the following diagnoses?: none Exam - Constitutional Vitals: Temp Pulse Resp BP Pulse Ox 98.1 F 56 L 18 129/69 100 09/17/17 03:53 09/17/17 12:45 09/17/17 03:53 09/17/17 10:41 09/16/17 23:45 General appearance: Present: no acute distress - EENT Eyes: Present: PERRL ENT: hearing intact - Neck Neck: Present: supple - Respiratory Respiratory effort: normal Respiratory: bilateral: CTA - Cardiovascular Rhythm: regular Heart Sounds: Present: S1 & S2 - Abdominal General gastrointestinal: Present: soft, non-tender Male genitourinary: Present: deferred - Rectal Rectal Exam: deferred - Integumentary Integumentary: Present: clear, warm, dry - Musculoskeletal Musculoskeletal: strength equal bilaterally - Psychiatric Psychiatric: appropriate mood/affect - Neurologic Neurologic: moves all extremities - Allied Health Allied health notes reviewed: nursing Plan Follow up with: ANTOINE HOWARD MD [Primary Care Provider] - 3-5 Days VASILE CARPIO MD [Staff Physician] - 7 Days GERHARD CARPIO MD [Staff Physician] - 7 Days Prescriptions: Pantoprazole [Protonix TAB] 40 mg PO QDAY #30 tablet <ZAIDA MICHAELS - Last Filed: 09/17/17 17:18> Providers - Providers Date of Admission: 09/15/17 14:57 Attending physician: ZAIDA MICHAELS MD 09/16/17 12:28 Consult to Cardiology [CONS] Routine Consulting Provider: HIRAL ARAUZ Reason For Exam: abnomal stress test Primary care physician: ANTOINE HOWARD Hospitalization Reason for admission: chest pain Hospital course: I saw and evaluated the patient. I agree with the findings and the plan of care as documented in the Nurse Practitioner's~note, with the following corrections and additions. Chest pain likely Gastrities Anxiety disorder Recommend follow up with PCP and also with PSYCHIATRY Exam - Constitutional Vitals: Temp Pulse Resp BP Pulse Ox 98.1 F 56 L 18 129/69 100 09/17/17 03:53 09/17/17 12:45 09/17/17 03:53 09/17/17 10:41 09/16/17 23:45
== END 2017-09-17 16:50 | disposition home or self-care (01) | DRG 392 ==
LOC: ED 11:41 → 4A 14:57
PROVIDERS: ADMIT Internal Medicine; ATTEND Internal Medicine
DX: K29.70 Gastritis, unspecified, without bleeding (principal); K21.0 Gastro-esophageal reflux disease with esophagitis; E87.6 Hypokalemia; I10 Essential (primary) hypertension; F12.10 Cannabis abuse, uncomplicated; F41.9 Anxiety disorder, unspecified; I11.0 Hypertensive heart disease with heart failure; I50.9 Heart failure, unspecified; Z82.49 Family history of ischemic heart disease and other diseases of the circulatory system
CPT/HCPCS: 36415; 71020; 78452; 80048; 80053; 80307; 82550; 82553; 83880; 84484; 85007; 85025; 85610; 85730; 93005; 93010; 93017; 93306; A9502; J1650; J2785